=== PATIENT | female | born 1935 | race Caucasian/White ===

== ENCOUNTER 2017-03-27 15:39 | Inpatient (IN) ==
[2017-03-27] MEDS ORDERED: *HR* HYDROmorphone (PF) 1 MG/ML SYRINGE IVP ONE (17:09)
[2017-03-27] MEDS ORDERED: traMADol 50 MG TABLET PO ONE (17:40)
--- NOTE | 2017-03-27 19:53 | Internal Med History&Physical ---
<Eric Melendez - Last Filed: 03/28/17 04:04> Date of Encounter: 03/28/17 Time of Encounter: 19:48 Assessment and Plan (1) Comminuted right humeral fracture Current visit: No Status: Acute -From recent fall several days ago. Revealed on XR. Was going to be treated outpatient. Admitted due to pain -Patient not in distress and looks comfortable. Peripheral pulses +2/4 -Due to morphine allergy (anaphylaxis) and no one to comment, will prescribe tramadol that was already given to patient without adverse reaction. -Surgery scheduled for morning -Keep patient NPO -Patient will be full code. Did call POA at [phone] (Ree), no answer. -Sitter at bedside due to severe dementia -Patient dry. Will give fluids at 75 Qualifiers: Encounter type: initial encounter Fracture type: closed Qualified Code(s) : S42.351A - Displaced comminuted fracture of shaft of humerus, right arm, initial encounter for closed fracture (2) Right leg injury Current visit: Yes Status: Acute -In colon boot. Examined. No deformity, eccymosis seen. Pulses +2/4 -Radiology read as normal. I might have seen hairline fracture on fibula. Plan -Continue colon boot -Ortho consulted. Qualifiers: Encounter type: initial encounter Qualified Code(s): S89.91XA - Unspecified injury of right lower leg, initial encounter (3) DVT prophylaxis Current visit: Yes Status: Acute -Will hold due to surgery. (4) Fall Current visit: Yes Status: Acute -See above and note Qualifiers: Encounter type: initial encounter Qualified Code(s): W19.XXXA - Unspecified fall, initial encounter (5) Head injury Current visit: Yes Status: Acute -R sided eccymosis. No damage to orbit or eye -CT showed no acute changes -Patient is confused at baseline. However, feel like patient has not had stroke , acute/worsening bleed. No FND. -Continue to monitor Qualifiers: Encounter type: initial encounter Qualified Code(s): S09.90XA - Unspecified injury of head, initial encounter (6) Traumatic periorbital ecchymosis of right eye Current visit: Yes Status: Acute see above Qualifiers: Encounter type: initial encounter Qualified Code(s): S05.11XA - Contusion of eyeball and orbital tissues, right eye, initial encounter (7) Diabetes Current visit: Yes Status: Acute sliding scale initiated with DM protocol Qualifiers: Diabetes mellitus type: other specified (including LONG) Diabetes mellitus complication status: with unspecified complications 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 R shoulder fracture Admitted From: Emergency Dept Plans for Post Hospital Care: Transfer [facility] History of present illness: Ms. Guallpa is a 81 year old female, H severe dementia, correction patient at [facility], admitted for pain control. Per the nurse, patient fell several days ago injuring R side of face, R Shoulder, R Leg. Dr. Weems scheduled patient for R shoulder repair as outpatient. Patients daughter, and CHRISTINE Jha, felt like she wasn't getting proper pain control at correction and took patient to ED. Dr. Weems aware and doing surgery tomorrow. Patient unable to tell me her symptoms, where she hurts, is not alert and oriented, unable to follow commands. Does make eye contact and responds to voice, pain. GCS >8. She isn't altered from an acute stand point that requires medical attention. Appears comfortable in bed-no signs of grimacing, not crying. Sitter at bedside. Daughter not present. Past Med Surg Social Fam HX - Past Medical History Medical history: arthritis, cancer, dementia, diabetes, GERD, hypertension, osteoporosis, renal disease, thyroid disease Psychiatric history: no psych history - Past Surgical History Surgical History: cholecystectomy - Social History Smoking Status: Unknown if ever smoked Smokeless Tobacco Status: No Alcohol use: none Drug use: none - Family History Brother Hx Family Cardiac Disorders: Yes Hx Family Cancer: Yes Sister Hx Family Cardiac Disorders: Yes Internal Medicine - H&P: Meds HYDROcodone/Acet 5/325 mg [[place] 5-325 mg] 1 tab PO Q6H PRN #8 tab 03/24/17 [Rx] Acetaminophen [Tylenol] 1,000 mg PO Q6HR PRN 03/27/17 [History] Aspirin 81 mg PO DAILY 03/27/17 [History] Bisacodyl [Dulcolax] 10 mg RC DAILY PRN 03/27/17 [History] Calcium Carbonate/Vitamin D3 [Calcium 500 + Vit D Caplet] 1 each PO BID [History] Clopidogrel [Plavix] 75 mg PO DAILY 03/27/17 [History] Divalproex Sodium [Depakote] 125 mg PO HS 03/27/17 [History] Docusate Sodium [Dok] 100 mg PO BID PRN 03/27/17 [History] Donepezil [Aricept] 10 mg PO HS 03/27/17 [History] Fenofibrate [Lofibra] 160 mg PO DAILY 03/27/17 [History] Ferrous Gluconate 324 mg PO BID 03/27/17 [History] Furosemide [Lasix] 20 mg PO DAILY 03/27/17 [History] GlipiZIDE [Glipizide] 10 mg PO QAM 03/27/17 [History] Isosorbide MONOnitrate (24 HR) [Imdur] 60 mg PO DAILY 03/27/17 [History] LORazepam [Ativan] 1 mg PO DAILY PRN 03/27/17 [History] Levothyroxine [Synthroid] 75 mcg PO 0630 03/27/17 [History] Magnesium Oxide [Mgo] 400 mg PO BID 03/27/17 [History] Metoprolol XL (24 HR) Succ [Toprol XL] 50 mg PO DAILY 03/27/17 [History] Multivitamin [One Daily Multivitamin] 1 each PO DAILY 03/27/17 [History] Paroxetine HCl [Paxil] 20 mg PO DAILY 03/27/17 [History] Potassium Chloride [K-Tab ER] 20 meq PO BID 03/27/17 [History] Rosuvastatin [Crestor] 20 mg PO HS 03/27/17 [History] TraZODone 50 mg PO BID 03/27/17 [History] Allergies morphine Allergy (Verified 03/27/17 18:04) Anaphylaxis Tetanus Vaccines and Toxoid Allergy (Verified 03/27/17 18:04) Anaphylaxis ROS unobtainable: due to mental status All Systems PM: A 10-system review of systems was performed and is negative for pertinent findings except as documented above in the HPI. - Constitutional Vitals: Temp Pulse Resp BP Pulse Ox 98.1 F 61 16 180/80 99 03/27/17 19:00 03/27/17 19:00 03/27/17 19:00 03/27/17 19:00 03/27/17 19:00 General appearance: Present: A&O X 0, pleasant, no acute distress. Absent: answers questions appropriately - Head Additional comments: R facial bruise. No eye involvement. - Expanded Head Exam Head exam expanded: Absent: Jenknis's sign, raccoon eyes - Eye Eye exam: Present: PERRL, conjuntiva pink, sclera anicteric Pupils: Present: PERRL - ENT ENT exam: Present: mucous membranes dry, normal external ear exam Additional comments: no fluid leaking from ears - Neck Neck exam general surgery: Present: supple, trachea midline. Absent: lymphadenopathy - Respiratory Respiratory exam: Present: CTAB. Absent: accessory muscle use, rales, rhonchi, wheezes - Cardiovascular Cardiovascular exam: Present: RRR, +S1, +S2. Absent: diastolic murmur, gallop, rubs, systolic murmur - GI/Abdominal GI/Abdominal exam: Present: normal bowel sounds, soft, no peritoneal signs. Absent: distended, tenderness - Extremities Exam Additional comments: R shoulder: Brusing on medial aspect of R arm. Peripheral pulses +2/4 bilaterally. Color pink and warm. no signs of vascular compromise. R leg: In colon boot. Did open boot and evaluate foot with sock off Patients foot felt warm. normal pink color, tibial and dorsalis pedal pulse +2/4. Patient wiggled toes. Reevaluated R shoulder and R leg several hours later. No changes Internal Med - H&P Results - Labs CBC & Chem 7: 03/28/17 02:43 03/28/17 02:43 <[place] R - Last Filed: 03/28/17 09:39> Date of Encounter: 03/27/17 Internal Medicine - H&P: HPI History of present illness: Ms. Guallpa is a 81 year old female All Systems PM: A 10-system review of systems was performed and is negative for pertinent findings except as documented above in the HPI. - Constitutional Vitals: Temp Pulse Resp BP Pulse Ox 98.1 F 64 16 159/65 98 03/28/17 00:00 03/28/17 00:00 03/28/17 00:00 03/28/17 00:00 03/28/17 00:00 Internal Med - H&P Results - Labs CBC & Chem 7: 03/28/17 02:43 03/28/17 02:43 - Attending Attestation I performed history and physical examination of the patient and discussed management with the Warehouse Assistant / Resident. I reviewed the Warehouse Assistant / Residents note and agree with documented findings and plan of care. 81 Y/F with dementia, apparently fell down on 03/23/17 and was noted to have right humeral head and neck fracture She was discharged from the ER with sling and followed up with Dr Weems. She has increasing pain and is brought to the ER Dr Weems was notified and she is expected to have surgery done tomorrow. Patient has dementia and is disoriented - review of systems, family history could not be confirmed due to dementia. O/E: Does not seem to be in acute distress at the time of my evaluation. Lungs clear to auscultation. Cardiac regular rhythm. X-ray of the right shoulder reported: Humeral head/neck fracture with impaction. Humeral head is subluxed set inferiorly and possibly dislocated anteriorly. X-ray of the right tibia-fibula reported no acute osseous of normality. Labs pending. A/P: Right humerus fracture: Pain relief. Orthopedic consultation for possible ORIF. DM: Hold glipizide. Start sliding scale insulin Dementia: supportive care. Continue donepezil
[2017-03-27] MEDS ORDERED: Ondansetron 4 MG/2 ML VIAL IVP PRN (23:17)
[2017-03-27] MEDS ORDERED: Naloxone 0.4 MG/ML INJ IVP PRN (23:17)
[2017-03-27] MEDS ORDERED: Bisacodyl 10 MG RECTAL SUPPOSITORY RC PRN (23:22)
[2017-03-27] MEDS ORDERED: traMADol 50 MG TABLET PO PRN (23:22)
[2017-03-27] MEDS ORDERED: *HR* LORazepam 1 MG TABLET PO PRN (23:22)
[2017-03-28] MEDS: 0.9 % Sodium Chloride 1,000 ML IVC SCH ×2 (01:57→11:35)
[2017-03-28] MEDS ORDERED: *HR* Dextrose 50 % in Water (Syg) 50 ML SYRINGE IVP PRN ×2 (02:12→16:40)
[2017-03-28] MEDS ORDERED: Dextrose Gel 15 GM PO PRN ×4 (02:12→16:40)
[2017-03-28] MEDS ORDERED: D5% in Water 1,000 ML IVC PRN ×2 (02:12→16:40)
[2017-03-28 03:19] LABS: Basophils % 0.5 %; Eosinophils # 0.2 K/mcL (0.0-0.6); Hematocrit 29.8 % (35.3-44.9); Hemoglobin 8.9 g/dL (11.5-15.4); Immature Granulocytes % 0.2 % (0-4); Lymphocytes # 1.9 K/mcL (0.6-4.6); Lymphocytes % 21.7 %; Mean Corpuscular HGB Conc 29.9 g/dL (31.6-35.5); Mean Corpuscular Hemoglobin 24.5 pg (28.0-33.3); Mean Corpuscular Volume 82.1 fL (83.0-100.0); Mean Platelet Volume 11.6 fL (9.4-12.4); Monocytes # 0.9 K/mcL (0.0-1.3); Monocytes % 10.6 %; Neutrophils # 5.7 K/mcL (1.6-8.9); Platelet Count 221 K/mcL (140-400); Red Blood Count 3.63 M/mcL (3.82-4.97)
[2017-03-28 03:22] LABS: INR 1.1; Prothrombin Time 12.4 Seconds (9.4-12.1)
[2017-03-28 03:35] LABS: Alanine Aminotransferase 22 Units/L (0-55); Albumin 3.1 g/dL (3.5-5.0); Albumin/Globulin Ratio 0.8 (1.1-2.2); Alkaline Phosphatase 45 Units/L (38-126); Aspartate Amino Transferase 19 Units/L (5-34); BUN/Creatinine Ratio 19 (6-26); Bilirubin,Total 0.6 mg/dL (0.2-1.2); Blood Urea Nitrogen 16 mg/dL (7-20); Calcium 8.9 mg/dL (8.6-10.8); Carbon Dioxide 24 mEq/L (19-29); Chloride 105 mEq/L (98-109); Globulin 3.8 g/dL (2.4-3.5); Glucose 144 mg/dL (70-99); Magnesium 1.5 mg/dL (1.6-2.6); Osmolality,Calculated 292 (280-300); Phosphorous 1.9 mg/dL (2.3-4.7); Potassium 3.8 mEq/L (3.5-4.5); Sodium 139 mEq/L (136-145); Total Protein 6.9 g/dL (6.0-8.3); eGFR For African Americans > 60 (> 60); eGFR For Non-African Americans > 60 (> 60)
[2017-03-28] MEDS: Insulin LISPRO 300 UNITS/3 ML VIAL SQ SCH ×3 (07:10→20:31)
[2017-03-28] MEDS: Isosorbide MONOnitrate (24 HR) 60 MG TAB.ER.24H PO SCH ×2 (08:55→08:59)
--- NOTE | 2017-03-28 08:55 | Anesthesia Evaluation PreOp ---
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 History: CVA, Other (Alzheimer's dementia) Other Medical History: Renal (CKD stage 3), Diabetes Type II, Thyroid, GERD, Other (H/O breast CA S/P left lumpectomy and XRT) Anesthesia History: No Prior Anesthetic Complications, Past Anesthesia Alcohol Use: none Drug use: none Medications and Allergies HYDROcodone/Acet 5/325 mg [[place] 5-325 mg] 1 tab PO Q6H PRN #8 tab 03/24/17 [Rx] Acetaminophen [Tylenol] 1,000 mg PO Q6HR PRN 03/27/17 [History] Aspirin 81 mg PO DAILY 03/27/17 [History] Bisacodyl [Dulcolax] 10 mg RC DAILY PRN 03/27/17 [History] Calcium Carbonate/Vitamin D3 [Calcium 500 + Vit D Caplet] 1 each PO BID [History] Clopidogrel [Plavix] 75 mg PO DAILY 03/27/17 [History] Divalproex Sodium [Depakote] 125 mg PO HS 03/27/17 [History] Docusate Sodium [Dok] 100 mg PO BID PRN 03/27/17 [History] Donepezil [Aricept] 10 mg PO HS 03/27/17 [History] Fenofibrate [Lofibra] 160 mg PO DAILY 03/27/17 [History] Ferrous Gluconate 324 mg PO BID 03/27/17 [History] Furosemide [Lasix] 20 mg PO DAILY 03/27/17 [History] GlipiZIDE [Glipizide] 10 mg PO QAM 03/27/17 [History] Isosorbide MONOnitrate (24 HR) [Imdur] 60 mg PO DAILY 03/27/17 [History] LORazepam [Ativan] 1 mg PO DAILY PRN 03/27/17 [History] Levothyroxine [Synthroid] 75 mcg PO 0630 03/27/17 [History] Magnesium Oxide [Mgo] 400 mg PO BID 03/27/17 [History] Metoprolol XL (24 HR) Succ [Toprol XL] 50 mg PO DAILY 03/27/17 [History] Multivitamin [One Daily Multivitamin] 1 each PO DAILY 03/27/17 [History] Paroxetine HCl [Paxil] 20 mg PO DAILY 03/27/17 [History] Potassium Chloride [K-Tab ER] 20 meq PO BID 03/27/17 [History] Rosuvastatin [Crestor] 20 mg PO HS 03/27/17 [History] TraZODone 50 mg PO BID 03/27/17 [History] Allergies morphine Allergy (Verified 03/27/17 18:04) Anaphylaxis Tetanus Vaccines and Toxoid Allergy (Verified 03/27/17 18:04) Anaphylaxis - Meds/Allergy Pre-op Review Medications Reviewed: Yes Allergies Reviewed: Yes Beta Blockers on Current Med List: Yes If Beta Blockers taken, Date/Time (Last Dose taken): 03/28/2017 at 0830 Anesthesia Results - Labs 03/28/17 02:43 03/28/17 02:43 Laboratory Tests 03/28/17 02:43 PT 12.4 H INR 1.1 - Imaging EKG: report reviewed (03/27/2017 SR, ST deviation and moderate T wave abnormality) Anesthesia Exam Vital Signs/O2 Sat/Glucose, Most Recent Temp Pulse Resp BP Pulse Ox 98.5 F 65 14 177/84 97 03/28/17 08:30 03/28/17 08:30 03/28/17 08:30 03/28/17 08:30 03/28/17 08:30 Blood Glucose* 142 Height: 5'3''/1.6 m Weight: 206 lbs/93.64 kg NPO (# of Hours): 8 Pain Scale Used: Unable to assess (confused) - HEENT Mallampati: II Teeth: Edentulous Oral Opening: Greater than 3 - GROUND CREW LINES PERSON LOC: Confused (no motor or sensory deficits per patient's daughter (POA)) - Cardiac Rhythm: Regular Murmur: None - Pulmonary Breath Sounds: bilateral Clear Respiratory Effort: Symmetrical Anesthesia Assess/Plan ASA Score: 4 Modified Webster Scale for Level of Consciousness: Asleep with brisk response to stimulus Anesthetic Plan: General, Regional, Precautions (Patient and daughter(POA) understand that patient is at increased risk for perioperative complications including myocardial infarct, arrhythmias, CVA, post op vent support/ICU stay, and . Patient and daughter(POA) wish to proceed.) Monitoring Plan: Standard Monitors Recovery Plan: PACU
[2017-03-28] MEDS ORDERED: *HR* GlipiZIDE XL (24 HR) 10 MG TABLET PO SCH (09:00)
[2017-03-28] MEDS ORDERED: Furosemide 20 MG TABLET PO SCH (09:00)
[2017-03-28] MEDS ORDERED: Metoprolol XL (24 HR) Succ 50 MG TAB.ER.24H PO SCH (09:00)
[2017-03-28] MEDS ORDERED: Patient Taking Own Medication 1 EACH PO SCH ×2 (09:00→21:00)
[2017-03-28] MEDS ORDERED: Multivit/Ca/Min/Fe/FA 1 TAB TABLET PO SCH (09:00)
[2017-03-28] MEDS ORDERED: Fenofibrate 54 MG TABLET PO SCH (09:00)
[2017-03-28] MEDS ORDERED: Magnesium Oxide 400 MG TABLET PO SCH (09:00)
--- NOTE | 2017-03-28 10:06 | Orthopedic Consult Note ---
Date of Encounter: 03/28/17 Time of Encounter: 01:00 Assessment and Plan (1) Comminuted right humeral fracture Current Visit: No Status: Acute Due to her continued pain she is describing in her right shoulder after her recent fall, I spoke with the patient and her daighters and we discussed her xrays from today are showing a displaced right shoulder fracture. We discussed her best treatment option would be for a total shoulder reverse surgery. We also discussed of she does not get surgery she would like have a very limited range of motion. She would like to proceed with surgery for a right total shoulder reverse surgery with Patient was seen and examined this AM with . Cleared by hospitalist group. Continue NPO. No shoulder motion. Qualifiers: Encounter type: initial encounter Fracture type: closed Qualified Code(s) : S42.351A - Displaced comminuted fracture of shaft of humerus, right arm, initial encounter for closed fracture (2) Closed fibular fracture Current Visit: Yes Status: Acute She was also have right lower leg pain after her recent fall. Her xrays of her right tib/fib today is showing a nondisplced right fibula fracture. She does have some right lower leg fibula pain on exam today. Her hardware appears to be intact from her previous total knee replacement. We will have her start wearing a cam boot for her right fibula fracture Qualifiers: Encounter type: initial encounter Fibula location: shaft Fracture morphology: unspecified fracture morphology Laterality: right Qualified Code (s): S82.401A - Unspecified fracture of shaft of right fibula, initial encounter for closed fracture (3) Closed fracture of proximal phalanx of digit of hand with routine healing Current Visit: Yes Status: Acute Will be splinted intra-operatively with finger splint for support History of Present Illness Chief complaint: Fall HPI: Ms. Guallpa is a 81 year old female Patient here for right shoulder pain, seen in the office 03/25/17 - admitted from PAT appointment. Patient is non-verbal, history obtained from medical records. She fell yesterday on 03/24/17. She is unable to describe her pain and unale to rate her pain. Her daughter states that if she moves her right shoulder then she yells out in pain. Her pain is worse with movement. She complains of swelling and bruising Sustained Right proximal humerus fracture, Right fibular fracture. Exam: Seen and examined by this morning GLENOHUMERAL JOINT: ABDUCTION: decreased. FORWARD FLEXION: decreased. INTERNAL ROTATION: decreased. EXTERNAL ROTATION: decreased. HUMERUS PAIN: posititve, proximal. DELTOID STRENGTH: 5/5. SC TENDERNESS: negative. BICEPTS GROOVE PAIN: positive. SCAPULAR PAIN: negative. TRAPEZIAL PAIN: positive. MUSCLE WASTING: negative. SENSATION TO LIGHT TOUCH OVER AXILLARY NERVE: intact. . Past Med Surg Social Fam HX - Past Medical History Medical history: arthritis, cancer, dementia, diabetes, GERD, hypertension, osteoporosis, renal disease, thyroid disease Psychiatric history: no psych history - Past Surgical History Surgical History: cholecystectomy - Social History Smoking Status: Unknown if ever smoked Smokeless Tobacco Status: No Alcohol use: none Drug use: none - Family History Brother Hx Family Cardiac Disorders: Yes Hx Family Cancer: Yes Sister Hx Family Cardiac Disorders: Yes Medications and Allergies HYDROcodone/Acet 5/325 mg [[place] 5-325 mg] 1 tab PO Q6H PRN #8 tab 03/24/17 [Rx] Acetaminophen [Tylenol] 1,000 mg PO Q6HR PRN 03/27/17 [History] Aspirin 81 mg PO DAILY 03/27/17 [History] Bisacodyl [Dulcolax] 10 mg RC DAILY PRN 03/27/17 [History] Calcium Carbonate/Vitamin D3 [Calcium 500 + Vit D Caplet] 1 each PO BID [History] Clopidogrel [Plavix] 75 mg PO DAILY 03/27/17 [History] Divalproex Sodium [Depakote] 125 mg PO HS 03/27/17 [History] Docusate Sodium [Dok] 100 mg PO BID PRN 03/27/17 [History] Donepezil [Aricept] 10 mg PO HS 03/27/17 [History] Fenofibrate [Lofibra] 160 mg PO DAILY 03/27/17 [History] Ferrous Gluconate 324 mg PO BID 03/27/17 [History] Furosemide [Lasix] 20 mg PO DAILY 03/27/17 [History] GlipiZIDE [Glipizide] 10 mg PO QAM 03/27/17 [History] Isosorbide MONOnitrate (24 HR) [Imdur] 60 mg PO DAILY 03/27/17 [History] LORazepam [Ativan] 1 mg PO DAILY PRN 03/27/17 [History] Levothyroxine [Synthroid] 75 mcg PO 0630 03/27/17 [History] Magnesium Oxide [Mgo] 400 mg PO BID 03/27/17 [History] Metoprolol XL (24 HR) Succ [Toprol XL] 50 mg PO DAILY 03/27/17 [History] Multivitamin [One Daily Multivitamin] 1 each PO DAILY 03/27/17 [History] Paroxetine HCl [Paxil] 20 mg PO DAILY 03/27/17 [History] Potassium Chloride [K-Tab ER] 20 meq PO BID 03/27/17 [History] Rosuvastatin [Crestor] 20 mg PO HS 03/27/17 [History] TraZODone 50 mg PO BID 03/27/17 [History] Allergies morphine Allergy (Verified 03/27/17 18:04) Anaphylaxis Tetanus Vaccines and Toxoid Allergy (Verified 03/27/17 18:04) Anaphylaxis All Systems Reviewed: A 10-system review of systems was performed and is negative for pertinent findings except as documented above in the HPI. - Constitutional Constitutional: as per HPI, other - Cardiovascular Cardiovascular: as per HPI Physical Exam - Constitutional Vitals: Temp Pulse Resp BP Pulse Ox 98.5 F 65 14 177/84 97 03/28/17 08:30 03/28/17 08:30 03/28/17 08:30 03/28/17 08:30 03/28/17 08:30 Results - Labs Result Diagrams: 03/28/17 02:43 03/28/17 02:43 Labs: Abnormal lab results RBC 3.63 M/mcL (3.82-4.97) L 03/28/17 02:43 Hgb 8.9 g/dL (11.5-15.4) L 03/28/17 02:43 Hct 29.8 % (35.3-44.9) L 03/28/17 02:43 MCV 82.1 fL (83.0-100.0) L 03/28/17 02:43 MCH 24.5 pg (28.0-33.3) L 03/28/17 02:43 MCHC 29.9 g/dL (31.6-35.5) L 03/28/17 02:43 RDW 15.0 % (11.5-14.5) H 03/28/17 02:43 PT 12.4 Seconds (9.4-12.1) H 03/28/17 02:43 Glucose 144 mg/dL (70-99) H 03/28/17 02:43 POC Glucose 142 (58-89) H 03/28/17 03:11 Phosphorus 1.9 mg/dL (2.3-4.7) L 03/28/17 02:43 Magnesium 1.5 mg/dL (1.6-2.6) L 03/28/17 02:43 Albumin 3.1 g/dL (3.5-5.0) L 03/28/17 02:43 Globulin 3.8 g/dL (2.4-3.5) H 03/28/17 02:43 Albumin/Globulin Ratio 0.8 (1.1-2.2) L 03/28/17 02:43 H & H 03/28/17 Range/Units 02:43 Hgb 8.9 L (11.5-15.4) g/dL Hct 29.8 L (35.3-44.9) % All other labs normal. Consult Discharge Plan - Plan Referrals: Jennyfer Ortiz MD [Primary Care Provider] -
--- NOTE | 2017-03-28 10:36 | Electrocardiograph Report ---
[place] [id number] Test Date: 2017-03-27 Pat Name: Lana Guallpa Department: 114 Room: [facility] Gender: F Team Member: LEONA : 1935 Requested By: Maru French Order Number: [id number] Reading MD: Kennedy Shaw Measurements Intervals Perley Rate: 60 P: 27 NM: 125 QRS: 12 QRSD: 101 T: 95 QT: 471 QTc: 471 Interpretive Statements SINUS RHYTHM ST DEVIATION AND MODERATE T-WAVE ABNORMALITY, CONSIDER ANTEROLATERAL ISCHEMIA Electronically Signed On 03-28-2017 10:35:04 EDT by Kennedy Shaw
[2017-03-28] MEDS ORDERED: Lidocaine -MPF 4% 5 ML AMPUL ONE (13:18)
[2017-03-28] MEDS ORDERED: Dexamethasone 4 MG/ML VIAL ONE (13:24)
[2017-03-28] MEDS ORDERED: *HR* Succinylcholine 200 MG/10 ML VIAL IVP ONE (13:24)
[2017-03-28] MEDS ORDERED: Ondansetron 4 MG/2 ML VIAL ONE (13:24)
[2017-03-28] MEDS ORDERED: *HR* Midazolam HCl 2 MG/2 ML VIAL ONE (13:25)
[2017-03-28] MEDS ORDERED: *HR* FentaNYL (PF) 100 MCG/2 ML VIAL ONE (13:25)
[2017-03-28] MEDS ORDERED: *HR* Propofol 200 MG/20 ML VIAL IVP ONE (13:26)
[2017-03-28] MEDS ORDERED: Tetracaine/PF 20 MG/2 ML AMPUL ONE (13:29)
[2017-03-28] MEDS ORDERED: Bupivacaine/Clonidine Syringe 1 EACH SYRINGE ONE (13:30)
--- NOTE | 2017-03-28 14:07 | Anesthesia Procedures ---
Date of Encounter: 03/28/17 Time of Encounter: 14:04 Procedures: Anesthesia - Nerve Block Procedure Date: 03/28/17 Time: 14:05 Allergies/Adv Reactions: see chart for details Pre-op Diagnosis: r humerus fx Surgical Procedure: r tsr Checklist: Correct Patient Identifier, Correct procedure, History checked Correct side: Right Blood Thinner: No Monitor Applied: EKG, BP, Pulse Oximetry Supplemental Oxygen via Nasal Cannula (L/min): 5 Sedation: Versed (mg): 2 Sedation: Fentanyl (mcg): 50 Indication: Post Op Analgesia Pre-op Neuro Deficits: No Block Type: Supraclavicular (4-), Other (scp/10) Catheter placed: No Sterile Technique: Yes Ultrasound used: Yes Anatomy identified: Yes Visual spread of Local: Yes Neuro Stimulation: No Blood on Needle Aspiration: No Smooth Injection of Local: Yes Pain with Injection of Local: No Prep: Chlorhexadine Needle: 22 x 50 mm Stimuplex Local: 0.25% Bupivicaine w/Clonidine 20 mcg/cc Volume (cc): 40 Number of Attempts: 1 Complications: None/effective block Vitals: see rn note
[2017-03-28] MEDS ORDERED: EPHEDrine 50 MG/ML VIAL ONE (14:31)
--- NOTE | 2017-03-28 15:14 | Orthopedic Operative Note ---
Date of procedure: 03/28/17 Pre-op diagnosis: Displaced right proximal humerus fracture Post-op diagnosis: same Procedure: Procedure: Right Reverse total shoulder replacment, Estimated blood loss: 200 cc Hardware:Arthrex glenoid baseplate: Medium, 2 4.5 screws. 1 6.5 screw, glenosphere: 42+4 , humeral stem: 8 , insert: 3 metal 6 constrained Tammy Procedural Notes: Displaced proximal humerus fracture significant comminution of tuberosities. Operative procedure: The patient was brought to the operating room and placed on the operating room table. After general anesthesia was administered the operative shoulder was examined. Findings were noted. The patient was placed in the modified beachchair position. All pressure points were padded appropriately. And the head was stabilized in the neutral position. The operative extremity was prepped and draped in the sterile surgical fashion. The patient received IV antibiotics prior to skin incision. A standard deltopectoral approach was made to the operative shoulder. Incision was made to the skin and subcutaneous tissue,hemo stasis was obtained with Bovie cautery. Using careful blunt dissection the cephalic vein was identified and mobilized medially. The deltopectoral interval was developed and the clavipectoral fascia was incised. The lesser tuberosity was identified severely comminuted and excised, this was the same case for the greater tuberosity as well. The humeral head was removed. Anterior and posterior Bankart retractors were placed to expose the glenoid. The glenoid guide was seated and the centering hole was made. It was reamed with the appropriate reamer. The median baseplate was seated and secured with ( 2) 4.5 screws and one 6.5 screw. The baseplate was irrigated and dried and the 42+4 sphere was seated and secured with the Lozano taper. The Lozano taper was tested and found to be secure the humerus was redislocated and prepared with the diaphyseal reamers, followed by a broaching process up to the appropriate size 8 in 20 degrees of retro-version. Trial reduction found the shoulder to be relocatable. Trial components were removed. The real 8 humeral component was impaced in place in 20 degrees of retroversion. Trial reduction found the shoulder to be relocatable and stable with the 6 metal 3 Tammy. Trial component was removed and the real implants was seated and secured the shoulder was reduced. The shoulder had excellent motion and excellent stability and no evidence of dislocation. The deep tissue was irrigated with pulse irrigation. The deltopectoral interval was closed with a running #1 PDS suture, subcutaneous tissue was irrigated and closed with 0 PDS suture, the skin was closed with skin sg. The patient was placed in a sterile dressing, abduction brace and extubated. The patient was then transferred to the recovery room in stable condition. Anesthesia: GETA Surgeon: Issa Weems Condition: stable Disposition: PACU
[2017-03-28] MEDS ORDERED: *HR* HYDROmorphone (PF) 1 MG/ML SYRINGE IVP PRN ×2 (15:47→16:40)
[2017-03-28] MEDS ORDERED: Ondansetron 4 MG/2 ML VIAL IVP PRN ×3 (15:47→16:40)
[2017-03-28] MEDS ORDERED: Albuterol 2.5 MG/3 ML NEBULIZER IH PRN ×2 (15:47→16:40)
[2017-03-28 16:05] LABS: Hematocrit 27.5 % (35.3-44.9); Hemoglobin 8.5 g/dL (11.5-15.4)
--- NOTE | 2017-03-28 16:23 | Anesthesia Evaluation Post Op ---
Date of Encounter: 03/28/17 Time of Encounter: 16:23 - Vital Signs Vital Signs: Vital Signs/O2 Sat/Glucose, Most Current Temp Pulse Resp BP Pulse Ox 03/28/17 16:20 98.6 F 67 16 164/76 99 03/28/17 16:10 65 16 170/69 93 03/28/17 16:00 97.4 F L 70 16 156/81 95 03/28/17 15:50 81 16 152/82 99 03/28/17 15:40 78 14 170/59 97 03/28/17 15:30 98.2 F 72 16 167/71 100 03/28/17 13:45 63 12 177/66 99 03/28/17 12:47 98.3 F 65 16 154/81 97 - Lungs Lungs: Clear Ascult./Percussion - Airway Airway: Non-obstructed - Cardiovascular Regular Rate - Mental Status Mental Status: Alert & Oriented, Answers Appropriately - Pain Pain Scale: 2 Pain Scale used: Jose Luis (Faces) - Nausea Vomiting Nausea Vomiting: Not Present - Hydration Hydration: NPO - Discharge PostOp Status: Transfer Patient to floor
[2017-03-28] MEDS ORDERED: ceFAZolin 2,000 MG in D5% in Water 100 ML IVPB SCH (16:40)
[2017-03-28] MEDS ORDERED: Temazepam 15 MG CAPSULE PO PRN (16:40)
[2017-03-28] MEDS ORDERED: Ringers Solution, Lactated 1,000 ML IVC SCH (16:40)
[2017-03-28] MEDS ORDERED: Sennosides 8.6 MG TABLET PO PRN (16:40)
[2017-03-28] MEDS ORDERED: 0.9 % Sodium Chloride 1,000 ML IVC SCH (16:40)
[2017-03-28] MEDS ORDERED: MOM Conc 10 ML UD.LIQ PO PRN (16:40)
[2017-03-28] MEDS ORDERED: Bisacodyl 10 MG RECTAL SUPPOSITORY RC PRN (16:40)
[2017-03-28] MEDS ORDERED: *HR* LORazepam 1 MG TABLET PO PRN (16:40)
[2017-03-28] MEDS ORDERED: Naloxone 0.4 MG/ML INJ IVP PRN ×2 (16:40)
--- NOTE | 2017-03-28 17:24 | Internal Med Progress Note ---
Date of Encounter: 03/28/17 Time of Encounter: 17:21 - Assessment and plan (1) Comminuted right humeral fracture Current Visit: Yes Status: Acute Assessment and plan: Right shoulder and upper extremity x-ray confirms comminuted displaced right proximal humeral fracture, status post mechanical fall. Orthopedic surgery consult appreciated, underwent right reverse total shoulder replacement, postoperative day 0. Pain control and postoperative care per orthopedics. Physical therapy evaluation. Monitor hemoglobin closely. Qualifiers: Encounter type: initial encounter Fracture type: closed Qualified Code(s) : S42.351A - Displaced comminuted fracture of shaft of humerus, right arm, initial encounter for closed fracture (2) Traumatic periorbital ecchymosis of right eye Current Visit: Yes Status: Acute Assessment and plan: Status post mechanical fall. Noted to have right periorbital superficial hematoma and ecchymosis. Right conjunctival erythema could be from conjunctivitis, viral versus bacterial. Given her purulent discharge, will start ciprofloxacin eyedrops and continue to monitor. Qualifiers: Encounter type: initial encounter Qualified Code(s): S05.11XA - Contusion of eyeball and orbital tissues, right eye, initial encounter (3) Closed fracture of proximal phalanx of digit of hand with routine healing Current Visit: Yes Status: Acute Assessment and plan: Left fifth digit fracture on left hand x-ray. Finger splinting per orthopedics. (4) Closed fibular fracture Current Visit: Yes Status: Acute Assessment and plan: Right fibular fracture secondary to mechanical fall. Leg brace per orthopedics , consult appreciated. Qualifiers: Encounter type: initial encounter Fibula location: shaft Fracture morphology: unspecified fracture morphology Laterality: right Qualified Code (s): S82.401A - Unspecified fracture of shaft of right fibula, initial encounter for closed fracture (5) Essential hypertension Current Visit: Yes Status: Chronic Assessment and plan: Patient noted to have elevated blood pressure this morning prior to receiving home medications. Resume home medications and continue to monitor. (6) Coronary artery disease Current Visit: Yes Status: Chronic Qualifiers: Coronary Disease-Associated Artery/Lesion type: [place] artery [place] vs. transplanted heart: [place] heart Associated angina: without angina Qualified Code(s): I25.10 - Atherosclerotic heart disease of [place] coronary artery without angina pectoris (7) Hypothyroidism Current Visit: Yes Status: Chronic Assessment and plan: Resume home dose of levothyroxine. Qualifiers: Hypothyroidism type: unspecified Qualified Code(s): E03.9 - Hypothyroidism , unspecified (8) Dementia Current Visit: Yes Status: Chronic Assessment and plan: Continue Aricept. Supportive care and fall precautions. Qualifiers: Dementia type: Alzheimer's disease Alzheimer's disease onset: late-onset Dementia behavioral disturbance: without behavioral disturbance Qualified Code (s): G30.1 - Alzheimer's disease with late onset; F02.80 - Dementia in other diseases classified elsewhere without behavioral disturbance (9) Diabetes Current Visit: Yes Status: Chronic Assessment and plan: Accu-Chek blood glucose monitoring with sliding scale insulin. Diabetic diet as tolerated. Qualifiers: Diabetes mellitus type: type 2 Diabetes mellitus complication status: with unspecified complications Diabetes mellitus care home insulin use: without technician terminal and repeater use Qualified Code(s): E11.8 - Type 2 diabetes mellitus with unspecified complications - Subjective Interval history: Return from right shoulder surgery. Drowsy from anesthesia. History obtained from daughter at bedside. Complains of right conjunctival redness and right eye discharge. - Constitutional Vitals: Temp Pulse Resp BP Pulse Ox 98.3 F 64 12 177/83 100 03/28/17 17:09 03/28/17 17:09 03/28/17 17:09 03/28/17 17:09 03/28/17 17:09 General appearance: Present: A&O X 0 (Drowsy and somnolent), obese. Absent: answers questions appropriately - Eye Eye exam: Present: PERRL, conjuntiva pink (Right eye with conjunctival erythema and purulent discharge), sclera anicteric Pupils: Present: PERRL - Respiratory Respiratory exam: Present: CTAB (Anterolaterally). Absent: accessory muscle use , rales, rhonchi, wheezes - Cardiovascular Cardiovascular exam: Present: RRR, +S1, +S2. Absent: diastolic murmur, gallop, rubs, systolic murmur - GI/Abdominal GI/Abdominal exam: Present: normal bowel sounds, soft, no peritoneal signs. Absent: distended, tenderness - Extremities Exam Extremities exam: Present: full ROM (Status post right shoulder surgery, in sling), warm, radial pulses palpable and symetrical. Absent: calf tenderness, cyanotic, pedal edema Internal Medicine: Result - Labs CBC & Chem 7: 03/29/17 04:30 05/04/17 02:43 Labs: Short CBC 03/28/17 03/28/17 Range/Units 02:43 15:56 WBC 8.7 (4.3-11.1) K/mcL Hgb 8.9 L 8.5 L (11.5-15.4) g/dL Hct 29.8 L 27.5 L (35.3-44.9) % Plt Count 221 (140-400) K/mcL Neutrophils # 5.7 (1.6-8.9) K/mcL BMP 03/28/17 02:43 Sodium 139 Potassium 3.8 Chloride 105 Carbon Dioxide 24 BUN 16 Creatinine 0.85 Glucose 144 H Calcium 8.9 Liver Function 03/28/17 Range/Units 02:43 Total Bilirubin 0.6 (0.2-1.2) mg/dL AST 19 (5-34) Units/L ALT 22 (0-55) Units/L Alkaline Phosphatase 45 (38-126) Units/L Albumin 3.1 L (3.5-5.0) g/dL - ABG Interpretation ABG results: PT/INR, D-dimer PT 12.4 Seconds (9.4-12.1) H 03/28/17 02:43 - Impressions Impressions Hand X-Ray 03/28/17 09:17 IMPRESSION: Acute nondisplaced oblique fracture of the proximal phalanx of the fifth digit. No other definite fracture is identified, however exam is limited due to difficulty in patient positioning. D/ / 03/28/2017 12:54:42 Mary Slaughter MD / ebonie Interpreting Provider: Mary Slaughter MD Shoulder X-Ray 03/28/17 13:50 IMPRESSION: Total right shoulder prosthesis is in normal alignment. No interval acute fracture. D/ / Ralf Hopper MD / Ralf Hopper MD Interpreting Provider: Ralf Hopper MD Consult Discharge Plan - Plan Additional Instructions: F/up with [facility], as scheduled Referrals: Jennyfer Ortiz MD [Primary Care Provider] - Prescriptions: Ciprofloxacin OPTH Soln [Ciloxan OPTH Soln] 2 drop RIGHT EYE Q4HR 10 Days Tramadol HCl [Ultram] 50 mg PO Q6H PRN #20 tab PRN Reason: Pain
[2017-03-28] MEDS: Ciprofloxacin OPTH Soln 2.5 ML BOTTLE RIGHT EYE SCH (20:13)
[2017-03-28] MEDS: Magnesium Oxide 400 MG TABLET PO SCH (20:27)
[2017-03-28] MEDS: Divalproex Sodium 125 MG CAPSULE PO SCH (20:27)
[2017-03-28] MEDS ORDERED: Divalproex Sodium 125 MG CAPSULE PO SCH (21:00)
[2017-03-28] MEDS ORDERED: Insulin LISPRO 300 UNITS/3 ML VIAL SQ SCH (21:00)
[2017-03-28] MEDS: ceFAZolin 2,000 MG in D5% in Water 100 ML IVPB SCH (22:32)
[2017-03-29] MEDS: Ciprofloxacin OPTH Soln 2.5 ML BOTTLE RIGHT EYE SCH ×7 (00:33→20:22)
[2017-03-29 04:47] LABS: Hematocrit 24.1 % (35.3-44.9); Hemoglobin 7.5 g/dL (11.5-15.4)
[2017-03-29] MEDS: ceFAZolin 2,000 MG in D5% in Water 100 ML IVPB SCH (06:07)
[2017-03-29] MEDS ORDERED: Furosemide 20 MG/2 ML VIAL IVP ONE ×3 (06:39→21:59)
--- NOTE | 2017-03-29 06:43 | Orthopedics Progress Note ---
Date of Encounter: 03/29/17 Time of Encounter: 06:42 Subjective Interval history: Patient was seen this morning doing well without complaints. Afebrile vital signs stable. Operative extremity: Neurovascularly intact Dressing clean dry and intact Calves nontender Assessment and plan: Continue with postoperative care Hematocrit 24 transfuse 2 units, stable for discharge after blood Objective Vital signs: Vital Signs Temp Pulse Resp BP Pulse Ox 03/29/17 04:34 99.6 F 76 18 183/101 100 03/29/17 01:58 98.4 F 79 17 185/64 97 03/28/17 19:47 98.5 F 69 20 165/66 98 03/28/17 18:32 97.7 F 74 11 167/80 95 03/28/17 17:33 97.8 F 64 10 161/84 100 03/28/17 17:09 98.3 F 64 12 177/83 100 03/28/17 16:35 97.4 F L 66 12 148/61 97 03/28/17 16:20 98.6 F 67 16 164/76 99 03/28/17 16:10 65 16 170/69 93 03/28/17 16:00 97.4 F L 70 16 156/81 95 03/28/17 15:50 81 16 152/82 99 03/28/17 15:40 78 14 170/59 97 03/28/17 15:30 98.2 F 72 16 167/71 100 03/28/17 13:45 63 12 177/66 99 03/28/17 12:47 98.3 F 65 16 154/81 97 03/28/17 08:30 98.5 F 65 14 177/84 97 Intake and Output 03/28/17 03/28/17 03/29/17 15:59 23:59 07:59 Intake Total 100 / 100 Output Total 200 / 200 Balance -200 / -200 100 / 100 Intake: IV Fluids 100 / 100 Ancef 2,000 MG In 100 / 100 Dextrose 5% 100 ML @ 200 mls/hr IVPB Q8H CIPRIANO Rx#: [id number] Output: Estimated Blood Loss 200 / 200 Other: # Urine Diapers 1 Blood Glucose* 157 146 - Labs CBC & BMP: 03/29/17 04:30 03/28/17 02:43 Labs: Abnormal lab results RBC 3.63 M/mcL (3.82-4.97) L 03/28/17 02:43 Hgb 7.5 g/dL (11.5-15.4) L 03/29/17 04:30 Hct 24.1 % (35.3-44.9) L 03/29/17 04:30 MCV 82.1 fL (83.0-100.0) L 03/28/17 02:43 MCH 24.5 pg (28.0-33.3) L 03/28/17 02:43 MCHC 29.9 g/dL (31.6-35.5) L 03/28/17 02:43 RDW 15.0 % (11.5-14.5) H 03/28/17 02:43 PT 12.4 Seconds (9.4-12.1) H 03/28/17 02:43 Glucose 144 mg/dL (70-99) H 03/28/17 02:43 POC Glucose 146 (58-89) H 03/28/17 20:20 Phosphorus 1.9 mg/dL (2.3-4.7) L 03/28/17 02:43 Magnesium 1.5 mg/dL (1.6-2.6) L 03/28/17 02:43 Albumin 3.1 g/dL (3.5-5.0) L 03/28/17 02:43 Globulin 3.8 g/dL (2.4-3.5) H 03/28/17 02:43 Albumin/Globulin Ratio 0.8 (1.1-2.2) L 03/28/17 02:43 - VTE Documentation of Mechanical Device: Venous foot pump, device Consult Discharge Plan - Plan Referrals: Jennyfer Ortiz MD [Primary Care Provider] -
[2017-03-29] MEDS: Insulin LISPRO 300 UNITS/3 ML VIAL SQ SCH ×4 (07:56→20:26)
[2017-03-29] MEDS: Fenofibrate 54 MG TABLET PO SCH (07:56)
[2017-03-29] MEDS: Isosorbide MONOnitrate (24 HR) 60 MG TAB.ER.24H PO SCH (07:56)
[2017-03-29] MEDS: Magnesium Oxide 400 MG TABLET PO SCH ×2 (07:57→20:26)
[2017-03-29] MEDS: Furosemide 20 MG TABLET PO SCH (07:57)
[2017-03-29] MEDS: Multivit/Ca/Min/Fe/FA 1 TAB TABLET PO SCH (07:57)
[2017-03-29] MEDS: Metoprolol XL (24 HR) Succ 50 MG TAB.ER.24H PO SCH (07:57)
[2017-03-29] MEDS: traMADol 50 MG TABLET PO PRN ×2 (08:15→13:53)
[2017-03-29] MEDS ORDERED: 0.9 % Sodium Chloride 250 ML ONE ×2 (11:41→17:59)
--- NOTE | 2017-03-29 15:42 | Discharge Summary ---
Date of Encounter: 03/29/17 Time of Encounter: 15:41 - Discharge Diagnosis (1) Comminuted right humeral fracture Priority: Primary Status: Acute Qualifiers: Encounter type: initial encounter Fracture type: closed Qualified Code(s) : S42.351A - Displaced comminuted fracture of shaft of humerus, right arm, initial encounter for closed fracture (2) Traumatic periorbital ecchymosis of right eye Priority: Primary Status: Acute Qualifiers: Encounter type: initial encounter Qualified Code(s): S05.11XA - Contusion of eyeball and orbital tissues, right eye, initial encounter (3) Closed fracture of proximal phalanx of digit of hand with routine healing Priority: Primary Status: Acute (4) Closed fibular fracture Priority: Primary Status: Acute Qualifiers: Encounter type: initial encounter Fibula location: shaft Fracture morphology: unspecified fracture morphology Laterality: right Qualified Code (s): S82.401A - Unspecified fracture of shaft of right fibula, initial encounter for closed fracture (5) Essential hypertension Priority: Secondary Status: Chronic (6) Coronary artery disease Priority: Secondary Status: Chronic Qualifiers: Coronary Disease-Associated Artery/Lesion type: [place] artery [place] vs. transplanted heart: [place] heart Associated angina: without angina Qualified Code(s): I25.10 - Atherosclerotic heart disease of [place] coronary artery without angina pectoris (7) Hypothyroidism Priority: Secondary Status: Chronic Qualifiers: Hypothyroidism type: unspecified Qualified Code(s): E03.9 - Hypothyroidism , unspecified (8) Dementia Priority: Secondary Status: Chronic Qualifiers: Dementia type: Alzheimer's disease Alzheimer's disease onset: late-onset Dementia behavioral disturbance: without behavioral disturbance Qualified Code (s): G30.1 - Alzheimer's disease with late onset; F02.80 - Dementia in other diseases classified elsewhere without behavioral disturbance (9) Diabetes Priority: Secondary Status: Chronic Qualifiers: Diabetes mellitus type: type 2 Diabetes mellitus complication status: with unspecified complications Diabetes mellitus buttermaker helper insulin use: without buttermaker helper use Qualified Code(s): E11.8 - Type 2 diabetes mellitus with unspecified complications - Discharge Medications Prescriptions: Ciprofloxacin OPTH Soln [Ciloxan OPTH Soln] 2 drop RIGHT EYE Q4HR 10 Days Tramadol HCl [Ultram] 50 mg PO Q6H PRN #20 tab PRN Reason: Pain Home Medications: Acetaminophen [Tylenol] 1,000 mg PO Q6HR PRN 03/27/17 [History] Aspirin 81 mg PO DAILY 03/27/17 [History] Bisacodyl [Dulcolax] 10 mg RC DAILY PRN 03/27/17 [History] Calcium Carbonate/Vitamin D3 [Calcium 500 + Vit D Caplet] 1 each PO BID [History] Clopidogrel [Plavix] 75 mg PO DAILY 03/27/17 [History] Divalproex Sodium [Depakote] 125 mg PO HS 03/27/17 [History] Docusate Sodium [Dok] 100 mg PO BID PRN 03/27/17 [History] Donepezil [Aricept] 10 mg PO HS 03/27/17 [History] Fenofibrate [Lofibra] 160 mg PO DAILY 03/27/17 [History] Ferrous Gluconate 324 mg PO BID 03/27/17 [History] Furosemide [Lasix] 20 mg PO DAILY 03/27/17 [History] GlipiZIDE [Glipizide] 10 mg PO QAM 03/27/17 [History] Isosorbide MONOnitrate (24 HR) [Imdur] 60 mg PO DAILY 03/27/17 [History] LORazepam [Ativan] 1 mg PO DAILY PRN 03/27/17 [History] Levothyroxine [Synthroid] 75 mcg PO 0630 03/27/17 [History] Magnesium Oxide [Mgo] 400 mg PO BID 03/27/17 [History] Metoprolol XL (24 HR) Succ [Toprol Xl] 50 mg PO DAILY 03/27/17 [History] Multivitamin [One Daily Multivitamin] 1 each PO DAILY 03/27/17 [History] Paroxetine HCl [Paxil] 20 mg PO DAILY 03/27/17 [History] Potassium Chloride [K-Tab ER] 20 meq PO BID 03/27/17 [History] Rosuvastatin [Crestor] 20 mg PO HS 03/27/17 [History] TraZODone 50 mg PO BID 03/27/17 [History] Ciprofloxacin OPTH Soln [Ciloxan OPTH Soln] 2 drop RIGHT EYE Q4HR 10 Days [Rx] Tramadol HCl [Ultram] 50 mg PO Q6H PRN #20 tab 03/29/17 [Rx] Allergies/Adverse Reactions: Allergies morphine Allergy (Verified 03/27/17 18:04) Anaphylaxis Tetanus Vaccines and Toxoid Allergy (Verified 03/27/17 18:04) Anaphylaxis Procedures/tests Complete & Pending: Procedures Performed prior 72 hours Category Date Time Status EKG [ECG 12 lead ECG] [ECG] Stat Y 03/27/17 15:57 Completed Date of admission: 03/27/17 22:00 Primary care physician: Jennyfer Ortiz MD Consults: 03/28/17 16:40 Consult to Occupational Therapy [CONS] Routine Comment: post shoulder surgery Reason for Consult: post shoulder surgery Consult to Physical Therapy [CONS] Routine Comment: post shoulder surgery Reason for Consult: post shoulder surgery RT Post Op Consult [CONS] Routine Discharging clinician: Miracle Hernandez Anticipated date of discharge: 03/29/17 - Patient Status Disposition: Transfer SNF Condition: Fair Functional capacity at discharge: uses cane/walker Overall status at discharge: patient is progressing back to baseline - Discharge Instructions Instructions: Arm Fracture in Adults (DC), Chronic Hypertension (DC) Follow Up With: Jennyfer Ortiz MD [Primary Care Provider] - Additional Instructions: F/up with [facility], as scheduled Discharge Instructions: Total Shoulder Please call [facility] ([phone]), your Primary Care Physician, or report to the Emergency Room if you have any of the following symptoms: Nausea, vomiting, fever greater that 101.5, swelling, chest pain, shortness of breath, increased pain/redness/drainage/odor for your incision site, numbness/ tingling, or any other concerning symptoms. ACTIVITY: Always keep your arm in the sling. Do not raise your arm away from your body. Do not use your arm to help with getting in or out of bed. No weight bearing permitted. Only perform those exercises given to you by your therapist. MEDICATIONS: Upon discharge resume your home medications. Take all the medications as prescribed. Take a stool softener if taking narcotic pain medications. Stool softeners are only effective if you drink enough fluids. Drink 6-8 glass of water or fluids a day, unless this is not allowed for another health problem. Despite using stool softeners, if you haven't had a bowel movement in 3 days, please switch to a gentle laxative. Gentle laxatives are sold over the counter. You should have a bowel movement within 24 hours, if not call the office. You will be discharged from the hospital with a prescription for pain medication. You are encouraged to decrease the use of narcotic pain medication as tolerated. Should you require a refill, please call the office. [facility] prescribes narcotic pain medication for only 4-6 weeks after surgery. If you require pain medication beyond this time period, you may be referred to your Primary Care Physician or to the Pain Clinic for further evaluation. Plan ahead for refills on pain medication as many narcotics either need to be picked up at the office or mailed. It is best to call 48-72 hours in advance of needing a prescription refill so you don't run out of medication. To help control the post-operative pain, you may take NSAIDs (Aleve,Advil, Motrin, Ibuprofen, Naprosyn) or Tylenol as prescribed on the bottle in addition to the pain medication. WOUND CARE: Leave the dressing on for 7-10 days. You may change the dressing if it becomes saturated greater than 50%. Do not get the dressing wet at anytime. Wash your hands with antibacterial soap, rinse and dry prior to any wound care. If you have sg the visiting nurse or rehab facility can remove the stapes 10-14 days after surgery and place steri-strips across the wound. Leave the steri-strips in place until they fall off on their own. You may let water from the shower run on top of the steri-strips. If you do not have a visiting nurse or rehab facility, you will need to return to the office at 10-14 days for the sg to be removed. If you have itching or redness around the dressing call the office. FOLLOW-UP: Please follow up with your surgeon in the orthopedic clinic, as scheduled - Diet and Activity Activity: as per physical therapy Diet: diabetic diet, low fat, low cholesterol, low salt diet Hospital course: Ms. Guallpa is a 81 [facility] female [facility] resident with history of dementia , who was admitted after [facility] a [facility] at the [facility]. She was noted to have comminuted displaced fracture of right proximal humerus, right fibular fracture and left hand fifth digit fracture. Orthopedic surgery was consulted and patient underwent reverse right-sided shoulder replacement, she received a brace to her right leg and finger splinting to left fifth finger. She did well postoperatively and noted to have acute blood loss anemia secondary to surgery. She received 2 units PRBC transfusion and patient has been cleared by orthopedic surgery for discharge with outpatient follow-up. She is stable for transfer [facility] to [facility] at this time. Patient was also noted to have right periorbital edema and ecchymosis, which is now improving. She was noted to have right eye conjunctivitis and has been started on ciprofloxacin eyedrops with improvement. - Time Spent with Patient Total time spent providing and/or coordinating discharge services: Greater than 30 minutes (50 min) - Constitutional Vitals: Temp Pulse Resp BP Pulse Ox 98.3 F 67 17 161/79 94 03/29/17 15:37 03/29/17 15:37 03/29/17 15:37 03/29/17 15:37 03/29/17 15:37 General appearance: Present: A&O X 0 (mostly nonverbal), obese. Absent: answers questions appropriately - Respiratory Respiratory exam: Present: CTAB (anterolaterally). Absent: accessory muscle use , rales, rhonchi, wheezes - Cardiovascular Cardiovascular exam: Present: RRR, +S1, +S2. Absent: diastolic murmur, gallop, rubs, systolic murmur - VTE Documentation of Mechanical Device: Venous foot pump, device
--- NOTE | 2017-03-29 15:49 | Physician Discharge Referral ---
ExtendedCare Referral Info Provider in Charge: Miracle Hernandez Provider in Charge after Transfer: PCP Institutional Level of Care: Skilled - Diagnosis (1) Comminuted right humeral fracture Priority: Primary Status: Acute (2) Traumatic periorbital ecchymosis of right eye Priority: Primary Status: Acute (3) Closed fracture of proximal phalanx of digit of hand with routine healing Priority: Primary Status: Acute (4) Closed fibular fracture Priority: Primary Status: Acute (5) Essential hypertension Priority: Secondary Status: Chronic (6) Coronary artery disease Priority: Secondary Status: Chronic (7) Hypothyroidism Priority: Secondary Status: Chronic (8) Dementia Priority: Secondary Status: Chronic (9) Diabetes Priority: Secondary Status: Chronic Expected Duration of Placement: 4 weeks Prognosis: Fair Aware of Diagnosis: Family Aware of Prognosis: Family - Transfer Medications Prescriptions: Ciprofloxacin OPTH Soln [Ciloxan OPTH Soln] 2 drop RIGHT EYE Q4HR 10 Days Tramadol HCl [Ultram] 50 mg PO Q6H PRN #20 tab PRN Reason: Pain Home Medications: Acetaminophen [Tylenol] 1,000 mg PO Q6HR PRN 03/27/17 [History] Aspirin 81 mg PO DAILY 03/27/17 [History] Bisacodyl [Dulcolax] 10 mg RC DAILY PRN 03/27/17 [History] Calcium Carbonate/Vitamin D3 [Calcium 500 + Vit D Caplet] 1 each PO BID [History] Clopidogrel [Plavix] 75 mg PO DAILY 03/27/17 [History] Divalproex Sodium [Depakote] 125 mg PO HS 03/27/17 [History] Docusate Sodium [Dok] 100 mg PO BID PRN 03/27/17 [History] Donepezil [Aricept] 10 mg PO HS 03/27/17 [History] Fenofibrate [Lofibra] 160 mg PO DAILY 03/27/17 [History] Ferrous Gluconate 324 mg PO BID 03/27/17 [History] Furosemide [Lasix] 20 mg PO DAILY 03/27/17 [History] GlipiZIDE [Glipizide] 10 mg PO QAM 03/27/17 [History] Isosorbide MONOnitrate (24 HR) [Imdur] 60 mg PO DAILY 03/27/17 [History] LORazepam [Ativan] 1 mg PO DAILY PRN 03/27/17 [History] Levothyroxine [Synthroid] 75 mcg PO 0630 03/27/17 [History] Magnesium Oxide [Mgo] 400 mg PO BID 03/27/17 [History] Metoprolol XL (24 HR) Succ [Toprol Xl] 50 mg PO DAILY 03/27/17 [History] Multivitamin [One Daily Multivitamin] 1 each PO DAILY 03/27/17 [History] Paroxetine HCl [Paxil] 20 mg PO DAILY 03/27/17 [History] Potassium Chloride [K-Tab ER] 20 meq PO BID 03/27/17 [History] Rosuvastatin [Crestor] 20 mg PO HS 03/27/17 [History] TraZODone 50 mg PO BID 03/27/17 [History] Ciprofloxacin OPTH Soln [Ciloxan OPTH Soln] 2 drop RIGHT EYE Q4HR 10 Days [Rx] Tramadol HCl [Ultram] 50 mg PO Q6H PRN #20 tab 03/29/17 [Rx] Allergies/Adverse Reactions: Allergies morphine Allergy (Verified 03/27/17 18:04) Anaphylaxis Tetanus Vaccines and Toxoid Allergy (Verified 03/27/17 18:04) Anaphylaxis - Respiratory Orders Smoking Cessation: Smoking cessation has been advised. For more information, call the [employer] Tobacco Quit Line at 0-048-JYHR-NOW. - Advance Directives Power of Scraper Tender: Yes Code Status: DNR-Arrest/Don't Intubate - Mobility Orders Ambulate - Rehabiliation Orders Rehab Potential: Fair Rehab Orders: ROM Exercises, Evaluation for Physical Therapy, Evaluation for Occupational Therapy - Diet Orders No Concentrated Sweets (diabetic), Cardiac CERTIFICATION: I certify that the transfer of the above named patient to an Extended Care Facility is necessary for the continuing treatment of the diagnosis listed. The above information is true and accurate reflection of patient's current condition. Confidential - Redisclosure prohibited without a patient's written consent.
[2017-03-29] MEDS: Divalproex Sodium 125 MG CAPSULE PO SCH (20:26)
[2017-03-29] MEDS: *HR* OxyCODONE/APAP 5/325 TABLET PO PRN (22:13)
[2017-03-30] MEDS: Ciprofloxacin OPTH Soln 2.5 ML BOTTLE RIGHT EYE SCH ×4 (00:20→13:06)
[2017-03-30 04:43] LABS: Hematocrit 28.9 % (35.3-44.9)
[2017-03-30 04:49] LABS: Hemoglobin 9.3 g/dL (11.5-15.4)
[2017-03-30] MEDS: *HR* OxyCODONE/APAP 5/325 TABLET PO PRN (04:55)
[2017-03-30] MEDS: Insulin LISPRO 300 UNITS/3 ML VIAL SQ SCH ×2 (07:29→13:06)
[2017-03-30 07:31] VITALS: BP 156/86
[2017-03-30] MEDS: Multivit/Ca/Min/Fe/FA 1 TAB TABLET PO SCH (08:46)
[2017-03-30] MEDS: traMADol 50 MG TABLET PO PRN ×2 (08:49→13:11)
[2017-03-30] MEDS: Magnesium Oxide 400 MG TABLET PO SCH (08:49)
[2017-03-30] MEDS: Furosemide 20 MG TABLET PO SCH (08:49)
[2017-03-30] MEDS: Metoprolol XL (24 HR) Succ 50 MG TAB.ER.24H PO SCH (08:50)
[2017-03-30] MEDS: Isosorbide MONOnitrate (24 HR) 60 MG TAB.ER.24H PO SCH (08:50)
[2017-03-30] MEDS: Fenofibrate 54 MG TABLET PO SCH (08:50)
--- NOTE | 2017-03-30 12:22 | Internal Med Progress Note ---
Date of Encounter: 03/30/17 Time of Encounter: 12:18 - Assessment and plan (1) Comminuted right humeral fracture Status: Acute Assessment and plan: Right shoulder and upper extremity x-ray confirms comminuted displaced right proximal humeral fracture, status post mechanical fall. Orthopedic surgery consult appreciated, underwent right reverse total shoulder replacement, postoperative day 2. Noted to have postoperative blood loss anemia and hemoglobin improved to 9.3 after 2 units PRBC transfusion. Pain control and postoperative care per orthopedics. Cleared for discharge by orthopedics, discharge held yesterday as it was late by the time patient received PRBC transfusion and daughter requested to hold transfer. Patient is currently medically stable for discharge back to correction. Qualifiers: Encounter type: initial encounter Fracture type: closed Qualified Code(s) : S42.351A - Displaced comminuted fracture of shaft of humerus, right arm, initial encounter for closed fracture (2) Traumatic periorbital ecchymosis of right eye Status: Acute Assessment and plan: Status post mechanical fall. Noted to have significant improvement in right periorbital ecchymosis and edema. Improved right eye conjunctivitis. Continue ciprofloxacin eyedrops and continue to monitor. Qualifiers: Encounter type: initial encounter Qualified Code(s): S05.11XA - Contusion of eyeball and orbital tissues, right eye, initial encounter (3) Closed fracture of proximal phalanx of digit of hand with routine healing Status: Acute (4) Closed fibular fracture Status: Acute Qualifiers: Encounter type: initial encounter Fibula location: shaft Fracture morphology: unspecified fracture morphology Laterality: right Qualified Code (s): S82.401A - Unspecified fracture of shaft of right fibula, initial encounter for closed fracture (5) Essential hypertension Status: Chronic (6) Coronary artery disease Status: Chronic Qualifiers: Coronary Disease-Associated Artery/Lesion type: teller artery [place] vs. transplanted heart: teller heart Associated angina: without angina Qualified Code(s): I25.10 - Atherosclerotic heart disease of teller coronary artery without angina pectoris (7) Hypothyroidism Status: Chronic Qualifiers: Hypothyroidism type: unspecified Qualified Code(s): E03.9 - Hypothyroidism , unspecified (8) Dementia Status: Chronic Qualifiers: Dementia type: Alzheimer's disease Alzheimer's disease onset: late-onset Dementia behavioral disturbance: without behavioral disturbance Qualified Code (s): G30.1 - Alzheimer's disease with late onset; F02.80 - Dementia in other diseases classified elsewhere without behavioral disturbance (9) Diabetes Status: Chronic Qualifiers: Diabetes mellitus type: type 2 Diabetes mellitus complication status: with unspecified complications Diabetes mellitus group home insulin use: without group home use Qualified Code(s): E11.8 - Type 2 diabetes mellitus with unspecified complications - Subjective Interval history: Improved right eye swelling and black eye; Nonverbal at baseline; not noted to be in distress; - Constitutional Vitals: Temp Pulse Resp BP Pulse Ox 97.9 F 63 18 156/86 96 03/30/17 07:24 03/30/17 07:24 03/30/17 07:24 03/30/17 07:24 03/30/17 07:24 General appearance: Present: A&O X 0 (awake but not alert or communicative), obese. Absent: answers questions appropriately - Respiratory Respiratory exam: Present: CTAB. Absent: accessory muscle use, rales, rhonchi, wheezes - Cardiovascular Cardiovascular exam: Present: RRR, +S1, +S2. Absent: diastolic murmur, gallop, rubs, systolic murmur - Extremities Exam Extremities exam: Present: full ROM (restricted at right shoulder and right knee ), warm, radial pulses palpable and symetrical. Absent: calf tenderness, cyanotic, pedal edema Additional comments: RUE in brace, postop shoulder incision healing well; Internal Medicine: Result - Labs CBC & Chem 7: 03/30/17 04:30 03/28/17 02:43 Labs: Short CBC 03/30/17 Range/Units 04:30 Hgb 9.3 L D (11.5-15.4) g/dL Hct 28.9 L (35.3-44.9) % - ABG Interpretation ABG results: PT/INR, D-dimer PT 12.4 Seconds (9.4-12.1) H 03/28/17 02:43 - VTE Documentation of Mechanical Device: Venous foot pump, device Consult Discharge Plan - Plan Instructions: Arm Fracture in Adults (DC), Chronic Hypertension (DC) Additional Instructions: F/up with [facility], as scheduled Discharge Instructions: Total Shoulder Please call [facility] ([phone]), your Primary Care Physician, or report to the Emergency Room if you have any of the following symptoms: Nausea, vomiting, fever greater that 101.5, swelling, chest pain, shortness of breath, increased pain/redness/drainage/odor for your incision site, numbness/ tingling, or any other concerning symptoms. ACTIVITY: Always keep your arm in the sling. Do not raise your arm away from your body. Do not use your arm to help with getting in or out of bed. No weight bearing permitted. Only perform those exercises given to you by your therapist. MEDICATIONS: Upon discharge resume your home medications. Take all the medications as prescribed. Take a stool softener if taking narcotic pain medications. Stool softeners are only effective if you drink enough fluids. Drink 6-8 glass of water or fluids a day, unless this is not allowed for another health problem. Despite using stool softeners, if you haven't had a bowel movement in 3 days, please switch to a gentle laxative. Gentle laxatives are sold over the counter. You should have a bowel movement within 24 hours, if not call the office. You will be discharged from the hospital with a prescription for pain medication. You are encouraged to decrease the use of narcotic pain medication as tolerated. Should you require a refill, please call the office. [facility] prescribes narcotic pain medication for only 4-6 weeks after surgery. If you require pain medication beyond this time period, you may be referred to your Primary Care Physician or to the Pain Clinic for further evaluation. Plan ahead for refills on pain medication as many narcotics either need to be picked up at the office or mailed. It is best to call 48-72 hours in advance of needing a prescription refill so you don't run out of medication. To help control the post-operative pain, you may take NSAIDs (Aleve,Advil, Motrin, Ibuprofen, Naprosyn) or Tylenol as prescribed on the bottle in addition to the pain medication. WOUND CARE: Leave the dressing on for 7-10 days. You may change the dressing if it becomes saturated greater than 50%. Do not get the dressing wet at anytime. Wash your hands with antibacterial soap, rinse and dry prior to any wound care. If you have sg the visiting nurse or rehab facility can remove the stapes 10-14 days after surgery and place steri-strips across the wound. Leave the steri-strips in place until they fall off on their own. You may let water from the shower run on top of the steri-strips. If you do not have a visiting nurse or rehab facility, you will need to return to the office at 10-14 days for the sg to be removed. If you have itching or redness around the dressing call the office. FOLLOW-UP: Please follow up with your surgeon in the orthopedic clinic, as scheduled Referrals: Jennyfer Ortiz MD [Primary Care Provider] - Prescriptions: Ciprofloxacin OPTH Soln [Ciloxan OPTH Soln] 2 drop RIGHT EYE Q4HR 10 Days Tramadol HCl [Ultram] 50 mg PO Q6H PRN #20 tab PRN Reason: Pain
== END 2017-03-30 14:55 | DRG 483 ==
LOC: 3NENU → SUATTDRO 22:00 → EDSTATUS 03-28 15:45
PROVIDERS: ADMIT Hospitalist; ATTEND Internal Medicine

== ENCOUNTER 2020-06-06 18:28 | Inpatient (IN) ==
[2020-06-06] MEDS ORDERED: 0.9 % Sodium Chloride 1,000 ML IVC ONE ×2 (18:44→20:27)
[2020-06-06 19:42] LABS: Basophils % 0.4 %; Eosinophils # 0.1 K/mcL (0.0-0.6); Eosinophils % 1.4 %; Hemoglobin 14.1 g/dL (11.5-15.4); Immature Granulocytes % 0.3 % (0-4); Immature Platelets 10.3 % (1.1-6.1); Lymphocytes # 2.1 K/mcL (0.6-4.6); Lymphocytes % 27.2 %; Mean Corpuscular Hemoglobin 31.4 pg (28.0-33.3); Mean Corpuscular Volume 104.7 fL (83.0-100.0); Mean Platelet Volume 13.8 fL (9.4-12.4); Monocytes # 0.6 K/mcL (0.0-1.3); Monocytes % 8.3 %; Neutrophils # 4.8 K/mcL (1.6-8.9); Platelet Count 116 K/mcL (140-400); Red Blood Count 4.49 M/mcL (3.82-4.97); Red Cell Distribution Width 14.1 % (11.5-14.5); Segmented Neutrophils % 62.4 %; White Blood Count 7.7 K/mcL (4.3-11.1)
[2020-06-06 19:44] LABS: Bacteria,Urine Many per hpf (None-Few); Bilirubin,Urine Negative (Negative); Blood,Urine Negative (Negative); Clarity,Urine Clear (Clear); Color,Urine Yellow (Yellow); Glucose,Urine (UA) Normal (Normal); Ketones,Urine Trace mg/dL (Negative); Leukocyte Esterase,Urine Large (Negative); Mucus,Urine Many per lpf (None-Few); Nitrite,Urine Negative (Negative); PH,Urine 6.5 pH Units (5.0-8.0); Protein,Urine 30 mg/dL (Neg-Trace); Specific Gravity,Urine > 1.030 (1.010-1.025); Squamous Epithelial Cell,Urine Few per hpf (None-Few); WBC,Urine 30-50 per hpf (0-3)
[2020-06-06] MEDS ORDERED: cefTRIAXone 1,000 MG in 0.9 % Sodium Chloride Mini Bag 100 ML IVPB ONE (19:55)
[2020-06-06 20:15] LABS: Albumin 4.1 g/dL (3.5-5.7); Albumin/Globulin Ratio 1.5 (1.1-2.2); Bilirubin,Direct 0.1 mg/dL (0.0-0.2); Bilirubin,Indirect 0.4 mg/dL (0.0-1.0); Bilirubin,Total 0.5 mg/dL (0.3-1.0); Calcium 9.8 mg/dL (8.6-10.3); Globulin 2.8 g/dL (2.4-3.5); Potassium 4.1 mEq/L (3.5-5.1); Total Protein 6.9 g/dL (6.4-8.9)
[2020-06-06] MEDS ORDERED: Ringers Solution, Lactated 1,000 ML IVC ONE (20:28)
[2020-06-06] MEDS ORDERED: Naloxone 0.4 MG/ML INJ IVP PRN (21:47)
[2020-06-06] MEDS ORDERED: *HR* Dextrose 50 % in Water (Vial) 50 ML VIAL IVP PRN (23:07)
[2020-06-06] MEDS ORDERED: Dextrose Gel 15 GM/37.5 ML TUBE PO PRN ×2 (23:07)
[2020-06-06] MEDS ORDERED: D5% in Water 1,000 ML IVC PRN (23:07)
[2020-06-06] MEDS ORDERED: Insulin DETEMIR 100 UNIT/ML X5UNITS SQ SCH (23:15)
[2020-06-06] MEDS: Insulin LISPRO 300 UNITS/3 ML VIAL SQ SCH (23:46)
[2020-06-06 23:47] LABS: Magnesium 2.2 mg/dL (1.6-2.6); Phosphorous 2.7 mg/dL (2.7-4.5)
[2020-06-06] MEDS: D5% in Water 1,000 ML IVC SCH (23:49)
[2020-06-07 00:09] LABS: Calcium 9.1 mg/dL (8.6-10.3); Potassium 3.9 mEq/L (3.5-5.1); Troponin I 0.03 ng/mL (< 0.04)
[2020-06-07] MEDS: Insulin LISPRO 300 UNITS/3 ML VIAL SQ SCH ×3 (03:53→12:51)
[2020-06-07] MEDS: D5% in Water 1,000 ML IVC SCH (05:06)
[2020-06-07 05:22] LABS: Basophils % 0.3 %; Eosinophils # 0.1 K/mcL (0.0-0.6); Eosinophils % 1.5 %; Hemoglobin 12.4 g/dL (11.5-15.4); Immature Granulocytes % 0.2 % (0-4); Lymphocytes # 1.9 K/mcL (0.6-4.6); Lymphocytes % 30.7 %; Mean Corpuscular HGB Conc 30.2 g/dL (31.6-35.5); Mean Corpuscular Hemoglobin 31.9 pg (28.0-33.3); Mean Corpuscular Volume 105.4 fL (83.0-100.0); Mean Platelet Volume 13.9 fL (9.4-12.4); Monocytes # 0.6 K/mcL (0.0-1.3); Monocytes % 10.2 %; Neutrophils # 3.5 K/mcL (1.6-8.9); Red Blood Count 3.89 M/mcL (3.82-4.97); Red Cell Distribution Width 14.1 % (11.5-14.5); Segmented Neutrophils % 57.1 %; White Blood Count 6.1 K/mcL (4.3-11.1)
[2020-06-07 05:52] LABS: Platelet Count 83 K/mcL (140-400)
[2020-06-07 05:55] LABS: Albumin 3.2 g/dL (3.5-5.7); Albumin/Globulin Ratio 1.1 (1.1-2.2); Bilirubin,Total 0.5 mg/dL (0.3-1.0); Calcium 8.4 mg/dL (8.6-10.3); Globulin 2.8 g/dL (2.4-3.5)
[2020-06-07 05:56] LABS: Large Platelets Present (Not Present); Platelet Estimate Slight Decrease (Normal)
[2020-06-07] MEDS ORDERED: *HR* Heparin 5,000 UNIT/ML VIAL SQ SCH (06:00)
[2020-06-07] MEDS ORDERED: D5% in Water 1,000 ML IVC SCH (07:39)
[2020-06-07 10:52] VITALS: BP 110/46
[2020-06-07] MEDS ORDERED: Sennosides 8.6 MG TABLET PO SCH (11:15)
[2020-06-07] MEDS ORDERED: Divalproex (12 HR) 250 MG TABLET PO SCH (21:00)
[2020-06-07] MEDS ORDERED: PARoxetine HCL 10 MG TABLET PO SCH (21:00)
[2020-06-07] MEDS ORDERED: cefTRIAXone 1,000 MG in Water for inj. (sterile) 10 ML IVP SCH (21:00)
[2020-06-07] MEDS ORDERED: traZODone 50 MG TABLET PO SCH (21:00)
[2020-06-08] MEDS ORDERED: Metoprolol XL (24 HR) Succ 25 MG TAB.ER.24H PO SCH (09:00)
[2020-06-08] MEDS ORDERED: Isosorbide MONOnitrate (24 HR) 60 MG TAB.ER.24H PO SCH (09:00)
[2020-06-11] MEDS ORDERED: Ergocalciferol (VIT D2) 50,000 UNIT (1.25MG) CAP PO SCH (09:00)
== END 2020-06-07 13:52 | disposition hospice, inpatient (51) | DRG 872 ==
LOC: EMEROOARM 18:28 → 3ANU 18:28 → SUATTDRO 21:01 → 3ANU 21:29
PROVIDERS: ADMIT Internal Medicine; ATTEND Internal Medicine